=== PATIENT | male | born 2000 | race Caucasian/White ===

== ENCOUNTER 2022-12-15 05:30 | Emergency (ER) | payer OTHER ==
[~2022-12-15] VITALS: Ht 162.6 cm; Wt 54.4 kg
[2022-12-15 05:47] VITALS: BP 163/70
--- NOTE | 2022-12-15 05:47 | NUR ---
TO BED AMBULATORY
--- NOTE | 2022-12-15 05:55 | NUR ---
PT IS HERE FOR LOWER ABD AND LEFT GROIN PAIN 05/18. HE FEELS THAT PAIN WILL SUBSIDED WHEN HE TURNS. PT IS AWAKE AND ORIENTED X4. ROOM AIR AND AMBULATORY
--- NOTE | 2022-12-15 06:39 | NUR ---
Dr. Bowers examining patient.
[2022-12-15] MEDS ORDERED: NACL 0.9% 1,000 ML IV SCH (06:40)
[2022-12-15] MEDS ORDERED: KETOROLAC 15 MG/ML VIAL IVP ONE (06:40)
[2022-12-15] MEDS ORDERED: ONDANSETRON 4 MG/2 ML VIAL IVP ONE (06:40)
--- NOTE | 2022-12-15 06:45 | NUR ---
PT WENT TO REST ROOM FEW TIMES
[2022-12-15 06:56] LABS: APPEARANCE,URINE CLEAR (CLEAR); BILIRUBIN,URINE NEGATIVE (NEGATIVE); BLOOD, URINE SMALL (NEGATIVE); COLOR,URINE YELLOW (YELLOW); LEUKOCYTE ESTERASE ,URINE NEGATIVE (NEGATIVE); NITRITE, URINE NEGATIVE (NEGATIVE); PH,URINE 7.5 (5.0-9.0); UGLUCOSE NEGATIVE (NEGATIVE)
[2022-12-15 07:03] LABS: BASOPHILS % (AUTO) 0.2 % (0.0-2.0); EOSINOPHILS % (AUTO) 0.1 % (0.0-4.0); HEMATOCRIT 45.6 % (36-52); LYMPHOCYTES # (AUTO) 1.4 K/uL (2.0-11.5); LYMPHOCYTES % (AUTO) 8.6 % (20.5-51.1); MEAN CORPUSCULAR HEMOGLOBIN 30 pg (27-31); MEAN CORPUSCULAR HGB CONC 35 g/dL (33-37); MEAN CORPUSCULAR VOLUME 84.1 fL (80-94); MONOCYTES # (AUTO) 0.6 K/uL (0.8-1.0); MONOCYTES % (AUTO) 3.9 % (1.7-9.3); NEUTROPHILS # (AUTO) 14.3 K/uL (1.8-7.7); NEUTROPHILS % (AUTO) 87.2 % (42.2-75.2); PLATELET COUNT (AUTO) 243 K/uL (140-450); RED BLOOD CELL COUNT(AUTO) 5.42 MIL/uL (4.20-6.10); RED CELL DISTRIBUTION WIDTH 12.9 % (11.6-13.7)
[2022-12-15 07:09] LABS: OTHER CASTS, URINE None Seen /LPF (None Seen); WBC,URINE 0-5 /HPF (0-5)
[2022-12-15 07:16] LABS: WHITE BLOOD COUNT (AUTO) 16.3 K/uL (4.8-10.8)
[2022-12-15 07:20] LABS: ALBUMIN 4.7 g/dL (3.4-5.0); CARBON DIOXIDE 28.4 mmol/L (21-32); CREATININE 1.2 mg/dL (0.6-1.3); POTASSIUM 3.4 mmol/L (3.5-5.1); TOTAL BILIRUBIN 0.7 mg/dL (0.0-1.0)
--- NOTE | 2022-12-15 08:13 | NUR ---
ASSUMED PATIENT CARE, CONCUR WITH PRIOR NURSING ASSESSMENTS. CT ABD COMPLETED.
[2022-12-15] MEDS ORDERED: IBUP-2213 PO (10:26)
[2022-12-15] MEDS ORDERED: TAMS0.4C96 PO (10:26)
[2022-12-15 10:51] VITALS: BP 126/45
--- NOTE | 2022-12-15 10:52 | NUR ---
DISPO AND MEDICAL DECISION MAKING DC HOME WITH E-RX, AND AFTERCARE INSTRUCTIONS. UNDERSTOOD BY PATIENT WELL. DC HOME AMBULATORY, DENIES PAIN, VS WNL.
== END 2022-12-15 10:52 | disposition home or self-care (01) ==
LOC: MED 05:30
DX: N23 Unspecified renal colic (principal); R11.2 Nausea with vomiting, unspecified; R19.7 Diarrhea, unspecified; R35.0 Frequency of micturition; R39.15 Urgency of urination; Z79.899 Other long term (current) drug therapy
CPT/HCPCS: 36415; 74177; 80053; 81001; 83690; 85025; 96374; 96375; 99285; J1885; J2405; Q9967